=== PATIENT | female | born 1950 | race Caucasian/White ===

== ENCOUNTER 2016-04-22 02:20 | Emergency (ER) | payer OTHER ==
[~2016-04-22] VITALS: Ht 167.6 cm; Wt 64.0 kg
--- NOTE | ~2016-04-22 | EKG ---
[place] [address] [facility] [place] [address] ELECTROCARDIOGRAM REPORT Name: JULY LANGE Room #: DEP [facility]#: [id number] Admission: 04/22/16 Attend Phys: Discharge: 04/22/16 Date of : 50 Report #: [id number] THIS REPORT FOR: //name// [facility] ED Test Date: 2016-04-22 Test Time: 02:25:40 Pat Name: JULY LANGE Department: Room: Gender: F Exercise Teacher: [id number] : 1950 Requested By: Papa Finley Order Number: [id number] MD: Jim Jones Measurements Intervals [place] Rate: 62 P: 45 OH: 217 QRS: 46 QRSD: 102 T: 61 QT: 429 QTc: 436 Interpretive Statements Sinus rhythm Borderline prolonged [place] interval Abnormal R-wave progression, early transition No previous ECG available for comparison Electronically Signed On 04-22-2016 8:24:29 [employer]/DESIGNER by Jim Jones [email or web address] <ELECTRONICALLY SIGNED> By: Jim Jones MD, [facility] 04/22/16 0824 0225 [id number] Jim Jones MD, FACC /EPI
--- NOTE | ~2016-04-22 | EKG ---
[address] [address] ELECTROCARDIOGRAM REPORT Name: JULY LANGE [id number] Admission: 04/22/16 Attend Phys: Discharge: 04/22/16 Date of : 50 Report #: [id number] THIS REPORT FOR: //name// [facility] ED Test Date: 2016-04-22 Test Time: 03:55:12 Pat Name: JULY LANGE Department: Room: Gender: F General Internal Medicine Physician: [id number] : 1950 Requested By: Papa Finley Order Number: [id number] MD: Measurements Intervals [place] Rate: 130 P: 79 W[place]: 129 QRS: 51 QRSD: 81 T: 40 QT: 293 QTc: 431 Interpretive Statements Sinus tachycardia Artifact in lead(s) I,II,aVR,aVL,V1,V2,V5,V6 No previous ECG available for comparison [email or web address] By: 4 4 Epiphany Epiphany, /EPI
[2016-04-22] MEDS ORDERED: COLESTIPOL HCL1 G1 PO (02:32)
[2016-04-22] MEDS ORDERED: PHENTERMINE HCL15 MG PO (02:32)
[2016-04-22] MEDS ORDERED: TYLENOL PM EX-1 EACH PO (02:32)
[2016-04-22] MEDS ORDERED: LIPITOR 20 MG T20 M1 PO (02:32)
[2016-04-22] MEDS ORDERED: OMEPRAZOLE20 M2 PO (02:33)
[2016-04-22] MEDS ORDERED: METFORMIN HCL500 MG PO (02:33)
[2016-04-22] MEDS ORDERED: LISINOPRIL-HCT1 EAC1 PO (02:34)
[2016-04-22] MEDS ORDERED: LOPERAMIDE 2 MG2 M1 PO (02:36)
[2016-04-22] MEDS ORDERED: IBUPROFEN 200200 M1 PO (02:36)
[2016-04-22] MEDS ORDERED: ATIVAN0.5 MG PO (02:37)
[2016-04-22 02:46] LABS: ABSOLUTE NEUTROPHILS 3.8 thou/uL (1.4-8.2); BASOPHILS 1.4 % (0.0-2.0); EOSINOPHILS 1.8 % (0.0-3.0); HEMATOCRIT 39.4 % (37.0-47.0); HEMOGLOBIN 13.5 gm/dL (12.0-15.0); LYMPHOCYTES 28.3 % (24.0-44.0); MCH 29.2 pg (26.0-34.0); MCHC 34.2 % (28.0-37.0); MCV 85.5 fL (80.0-100.0); MONOCYTES 11.3 % (1.0-8.0); PLATELET COUNT 290 thou/uL (150-400); POLYS 57.2 % (36.0-66.0); RBC 4.61 mil/uL (4.20-5.00); RDW 14.1 % (10.5-14.5); WBC 6.7 thou/uL (4.0-11.0)
[2016-04-22 03:06] LABS: MANUAL DIFF NO
[2016-04-22 03:11] LABS: ALBUMIN 3.5 g/dL (3.4-5.0); ALKALINE PHOSPHATASE 80 U/L (46-116); ANION GAP 8 mmol/L (7-16); CALCIUM 8.6 mg/dL (8.5-10.1); CHLORIDE 92 mmol/L (98-107); CO2 26 mmol/L (21-32); CREATININE 0.8 mg/dL (0.6-1.3); GLUCOSE 77 mg/dL (70-99); MAGNESIUM 1.2 mg/dL (1.8-2.4); SGOT 29 U/L (15-37); SGPT 23 U/L (30-65); SODIUM 126 mmol/L (136-145); TOTAL BILIRUBIN 0.6 mg/dL (<0.1-1.0); TOTAL PROTEIN 6.5 g/dL (6.4-8.2)
[2016-04-22 03:12] LABS: CK-MB MASS 4.5 ng/mL (<0.5-3.6); NT-PRO BRAIN NAT PEPTIDE 59 pg/mL (<300); TROPONIN-I < 0.04 ng/mL (<0.04-0.07)
[2016-04-22 03:17] LABS: BUN 16 mg/dL (7-18)
[2016-04-22 03:50] LABS: URINE BILIRUBIN NEGATIVE (Negative); URINE BLOOD NEGATIVE (Negative); URINE COLOR YELLOW; URINE GLUCOSE-RANDOM* NEGATIVE (Negative); URINE KETONES NEGATIVE (Negative); URINE NITRITE NEGATIVE (Negative); URINE PROTEIN (DIPSTICK) NEGATIVE (Negative); URINE SPECIFIC GRAVITY 1.015 (1.003-1.035); URINE UROBILINOGEN 0.2 E.U./dl (0.2-1.0)
[2016-04-22] MEDS ORDERED: ZOFRAN ODT8 MG PO (04:13)
[2016-04-22] MEDS ORDERED: MAG-OXIDE400 MG PO (04:13)
[2016-04-22 04:45] VITALS: BP 117/71
== END 2016-04-22 04:46 | disposition home or self-care (01) ==
LOC: ER 02:20
PROVIDERS: Emergency Medicine
DX: E83.42 Hypomagnesemia (principal); E87.1 Hypo-osmolality and hyponatremia; R11.0 Nausea; J06.9 Acute upper respiratory infection, unspecified; I10 Essential (primary) hypertension; E78.00 Pure hypercholesterolemia, unspecified; K21.9 Gastro-esophageal reflux disease without esophagitis; Z98.890 Other specified postprocedural states; Z88.5 Allergy status to narcotic agent